=== PATIENT | female | born 1980 | race American Indian/Alaskan Native ===

== ENCOUNTER 2020-07-20 20:52 | Emergency (ER) | payer OTHER ==
[2020-07-20 22:18] VITALS: BP 98/51
== END 2020-07-21 02:00 | disposition left against medical advice (07) ==
LOC: ED 20:52
DX: Z04.1 Encounter for examination and observation following transport accident (principal); Z53.21 Procedure and treatment not carried out due to patient leaving prior to being seen by health care provider